=== PATIENT | female | born 1945 | race Caucasian/White ===

== ENCOUNTER → 2017-04-28 | Outpatient (CLI) | payer MEDICARE, BC | LOC: MAMMO 09:13 | DX: Z12.31 Encounter for screening mammogram for malignant neoplasm of breast (principal) ==

== ENCOUNTER → 2018-06-13 | Outpatient (CLI) | payer MEDICARE, BC | LOC: MAMMO 09:11 | DX: Z12.31 Encounter for screening mammogram for malignant neoplasm of breast (principal) ==

== ENCOUNTER → 2019-08-28 | Outpatient (CLI) | payer MEDICARE, BC | LOC: MAMMO 09:55 | DX: Z12.31 Encounter for screening mammogram for malignant neoplasm of breast (principal) ==

== ENCOUNTER → 2020-10-14 | Outpatient (CLI) | payer MEDICARE, BC | LOC: MAMMO 13:00 | DX: Z12.31 Encounter for screening mammogram for malignant neoplasm of breast (principal) ==

== ENCOUNTER 2022-06-01 09:59 | Outpatient (RCR) | payer MEDICARE, BC | END 2022-06-11 | disposition home or self-care (01) | LOC: PT | DX: M79.601 Pain in right arm (principal) ==